=== PATIENT | female | born 1995 | race Two or more races ===

== ENCOUNTER → 2025-03-06 | Outpatient (CLI) | payer BC, SELFPAY ==
[2025-03-07 09:07] LABS: BVAG Candida Negative (Negative); Bacterial Vaginosis Markers Negative (Negative); Candida glabrata Negative (Negative); Candida krusei PCR Negative (Negative); Trichomonas Negative (Negative)
== END | disposition home or self-care (01) ==
LOC: SLDO 14:29
PROVIDERS: Referring Provider Physician Assistant Medical; Visit Provider Physician Assistant Medical
DX: B37.89 Other sites of candidiasis (principal); A59.01 Trichomonal vulvovaginitis; N76.0 Acute vaginitis
CPT/HCPCS: 81514

== ENCOUNTER → 2025-06-29 | Outpatient (CLI) | payer BC, SELFPAY ==
--- NOTE | 2025-06-29 13:58 | XR_ITS ---
Examination: Bilateral hands, 6 views. Technique: AP, Oblique, Lateral each hand total 6 views Date and time of exam: June 29, 2025, 1420 hours INDICATIONS: Bilateral hand numbness and pain especially on the ulnar side of the wrist 1 year Findings: Mild juxta articular bone demineralization No fracture or dislocation involving either hand No erosive or other significant arthritic change involving either hand No foreign bodies IMPRESSION: No erosive or other significant arthritic change involving either hand
--- NOTE | 2025-06-29 13:58 | XR_ITS ---
EXAMINATION: Bilateral wrist 6 views TECHNIQUE: AP oblique lateral each wrist total 6 views Date and time: June 29, 2025, 1423 hours INDICATIONS: Bilateral wrist numbness 1 year FINDINGS: Mild osteopenia No fracture or dislocation involving either wrist No erosive or other significant arthritic change involving either wrist IMPRESSION: No erosive or other significant arthritic change involving either wrist
== END | disposition home or self-care (01) ==
PROVIDERS: Referring Provider Nurse Practitioner Gerontology; Visit Provider Nurse Practitioner Gerontology
DX: M79.642 Pain in left hand (principal); M79.641 Pain in right hand; M25.532 Pain in left wrist; M25.531 Pain in right wrist
CPT/HCPCS: 73110; 73130